=== PATIENT | male | born 1970 | race Caucasian/White ===

== ENCOUNTER 2024-07-01 09:09 | Outpatient (AMB) | payer OTHER, SELFPAY ==
--- NOTE | 2024-07-01 09:10 | MHC.OFFVIS ---
Vital Signs 07/01/24 09:18 Height 5 ft 8 in Weight 143 lb BMI 21.7 BP 133/74 Blood Pressure Location Rt brachial Position Sitting Pulse 83 Intake Visit Reasons: 2 genital warts colon Intake Note: This patient presents for genital warts. Pt c/o; reports no complaints. 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 He had a colonoscopy last month in [place] and was told that he had perianal warts. He says that he really did not know about this before. He says that he does notice small amounts of blood once in a while when wiping He has known HIV for many years. His viral loads have been undetectable. He says that he not had any anal receptive intercourse for over 6 years now. He used to have a single partner for about 15 years. [facility] Medical History (Updated 07/01/24 @ 09:35 by Kirby Blount MD) Perianal condylomata Surgical History No pertinent past surgical history Family History Other Family history unknown Social History Alcohol intake: unknown Patient Tobacco Use Status: Tobacco use Unknown Review of Systems Const Denies chills and Denies fever(s) Card Denies chest pain, Denies dyspnea and Denies dyspnea on exertion Resp Denies cough, Denies dyspnea and Denies dyspnea on exertion GI Denies hematochezia and Denies change in bowel habits Denies hematuria and Denies difficulty urinating Musc Denies back pain and Denies limited range of motion Neuro Denies focal weakness and Denies convulsions Psych Denies depression and Denies mood swings Physical Exam Const General: comfortable and no acute distress Orientation/consciousness: patient oriented x3 Neck Neck: Yes no lymphadenopathy Resp Auscultation: clear to auscultation bilaterally Cardio Rhythm: regular rhythm GI Other: Rectal exam - perianal condylomatous lesions, varying in size from about 2-3 mm to 4 mm, on both the left and right side Palpation (GI): Soft to palpation, nontender and no guarding Neuro General: patient oriented x3 Assessment & Plan Assessment & Plan (1) Perianal condylomata: Code(s): A63.0 - Anogenital (venereal) warts Category: Medical Plan: He has perianal condylomas as described above. He has HIV as well. I therefore explained to him it would be best to proceed with excision/fulguration in the OR. I explained to him the technique of this procedure. I reviewed the risks including but not limited to bleeding, infections, poor healing, postop pain, as well as the benefits and alternatives. I told him that he needs to be followed every 6 months in the office because of this He has given consent. Coding Level of Care Code New Pt Level 3 (17642) Diagnoses Perianal condylomata A63.0
[2024-07-01 09:18] VITALS: BP 133/74; PULSE 83; BMI 21.7
== END 2024-07-01 09:33 | disposition home or self-care (01) ==
PROVIDERS: PCP Internal Medicine; Visit Provider Surgery
DX: A63.0 Anogenital (venereal) warts (principal)
CPT/HCPCS: 99203

== ENCOUNTER → 2024-07-01 09:09 | Outpatient (BNVA) | payer OTHER, SELFPAY | PROVIDERS: PCP Internal Medicine; Visit Provider Surgery ==